=== PATIENT | male | born 1975 | race Caucasian/White ===

== ENCOUNTER 2017-09-03 06:57 | Day surgery (SDC) | payer BC ==
[~2017-09-03 06:57] MED LIST: Lactated Ringers 1,000 ML IV SCH
[2017-09-03] MEDS ORDERED: Midazolam 1 MG/ML 2 ML SDV IV ONE (06:58)
[2017-09-03] MEDS ORDERED: Midazolam 1 MG/ML 2 ML SDV ONE (07:54)
[2017-09-03] MEDS ORDERED: Propofol 200 MG/20 ML SDV ONE (07:55)
[2017-09-03] MEDS ORDERED: fentaNYL 100 MCG/2 ML SDV ONE (07:55)
[2017-09-03] MEDS ORDERED: ceFAZolin 1 GM in Premix Bag 1 BAG IV ONE (08:00)
[2017-09-03 10:17] VITALS: BP 193/99
--- NOTE | 2017-09-03 12:42 | PCM48HPAN ---
Post Anesthesia Note - EVALUATION WITHIN 48HRS OF ANESTHETIC Vital Signs in Normal Range: No (Hypertension) Patient Participated in Evaluation: Yes Respiratory Function Stable: Yes Airway Patent: Yes Cardiovascular Function Stable: Yes Hydration Status Stable: Yes Pain Control Satisfactory: Yes Nausea and Vomiting Control Satisfactory: Yes Mental Status Recovered: Yes - COMMENTS/OBSERVATIONS Free Text/Narrative:: Procedure was cancelled today by Dr. Mehta. Pt was taken to OR 1, transferred himself to OR table. Monitors were applied. BP was elevated at 218 /133. Pt was given versed 2mg IV. Repeat blood pressure was 197/118. Dr. Mehta agreed to have patient wait in same day until we could have internal medicine evaluate and possibly treat blood pressure. During this time, the patient was instructed to take his benicar, which he had not taken yet today. Then his Netta confirmed that patient had not had any of his medications in over a week. At this point, Dr Mehta decided to postpone procedure until patient could be properly worked up by his PCP and begin taking his medications as directed.
== END 2017-09-03 09:40 | disposition home or self-care (01) ==
LOC: DL.SDS 06:57
PROVIDERS: ATTEND Surgery
DX: K80.20 Calculus of gallbladder without cholecystitis without obstruction (principal); Z53.8 Procedure and treatment not carried out for other reasons; I10 Essential (primary) hypertension
CPT/HCPCS: J0690; J2250; J7120

== ENCOUNTER 2017-10-07 07:02 | Day surgery (SDC) | payer BC ==
[~2017-10-07 07:02] MED LIST changes: -Lactated Ringers 1,000 ML IV SCH; +Sodium Chloride 0.9% 10 ML Syringe FLUSH PRN
[2017-10-07] MEDS ORDERED: Neostigmine Methylsulfate 10 MG/10 ML MDV IV ONE (07:03)
[2017-10-07] MEDS ORDERED: Glycopyrrolate 0.2 MG/ML 2 ML SDV IV ONE (07:03)
[2017-10-07] MEDS ORDERED: Midazolam 1 MG/ML 2 ML SDV IV ONE (07:03)
[2017-10-07] MEDS ORDERED: Rocuronium 50 MG/5 ML Vial IV ONE (07:03)
[2017-10-07] MEDS ORDERED: fentaNYL 100 MCG/2 ML SDV IV ONE (07:03)
[2017-10-07] MEDS ORDERED: Ondansetron 4 MG/2 ML SDV IV ONE (07:03)
[2017-10-07] MEDS ORDERED: Propofol 200 MG/20 ML SDV IV ONE (07:03)
[2017-10-07] MEDS ORDERED: Succinylcholine 200 MG/10 ML MDV IV ONE (07:03)
[2017-10-07] MEDS ORDERED: ceFAZolin 1 GM in Sodium Chloride 0.9% 50 ML IV ONE ×2 (07:28→09:36)
[2017-10-07] MEDS: Lactated Ringers 1,000 ML IV SCH ×2 (07:56→12:03)
[2017-10-07] MEDS ORDERED: Ondansetron 4 MG/2 ML SDV IV PRN (09:48)
[2017-10-07] MEDS ORDERED: Sodium Chloride 0.9% 10 ML Syringe FLUSH PRN (09:50)
--- NOTE | 2017-10-07 10:05 | OR ---
DATE: 10/07/2017 PREOPERATIVE DIAGNOSES: Chronic cholecystitis, cholelithiasis. POSTOPERATIVE DIAGNOSES: Chronic cholecystitis, cholelithiasis. PROCEDURE: Laparoscopic cholecystectomy. ANESTHESIA: General. ESTIMATED BLOOD LOSS: Minimal. SPECIMEN: Gallbladder. OPERATIVE FINDINGS: Quite a distended tense gallbladder, otherwise normal. Some sludgy stones were noted within the gallbladder. INDICATION FOR PROCEDURE: This 42-year-old male has known gallstones. Initially, he was scheduled for cholecystectomy last month, however, his blood pressure was not in control. Over the last month, has been controlled well and is normal this morning. DESCRIPTION OF PROCEDURE: After adequate preparation, trocars were placed in the abdomen, and the abdomen was insufflated with CO2. Examination showed a normal abdomen. He had a few omental adhesions to the gallbladder. These were taken off the gallbladder by blunt dissection. The gallbladder was quite tense and difficult to grasp very well, so I made an opening in the gallbladder and suctioned the bile clear so that the gallbladder could be grasped. The cystic triangle structures were dissected free. The artery and cystic duct were triply clipped and divided. The gallbladder was then taken off the liver bed using cautery dissection. After removal from the liver it was placed in a retrieval bag and brought out through the epigastric trocar site. The abdomen was re- insufflated and the right upper quadrant irrigated with saline and suctioned clear. There were no bleeding or any other abnormalities noted. Trocars were removed under direct vision. Abdomen desufflated and the skin closed with Vicryl. [facility] /[id number]
[2017-10-07] MEDS ORDERED: metFORMIN 500 MG Tab PO SCH (14:37)
[2017-10-07] MEDS: Acetaminophen/oxyCODONE 325-5 MG Tab PO PRN ×2 (15:06→20:09)
[2017-10-07] MEDS: Insulin Aspart 100 Units/ML 3 ML Pen SUBCUT SCH ×2 (15:10→17:52)
[2017-10-07] MEDS: metFORMIN 500 MG Tab PO SCH (17:51)
[2017-10-07] MEDS ORDERED: Insulin Detemir 100 Units/ML 3 ML Pen SUBCUT SCH (21:00)
[2017-10-07] MEDS ORDERED: amLODIPine 5 MG Tab PO SCH (21:00)
[2017-10-08] MEDS: Acetaminophen/oxyCODONE 325-5 MG Tab PO PRN (02:23)
[2017-10-08 08:05] VITALS: BP 115/65
[2017-10-08] MEDS: metFORMIN 500 MG Tab PO SCH (09:12)
[2017-10-08] MEDS: Insulin Aspart 100 Units/ML 3 ML Pen SUBCUT SCH (09:12)
--- NOTE | 2017-10-08 09:28 | PCM.SN ---
- Free Text/Narrative Note: Doing well today. Pain controlled. PO adequate. Incisions OK. Instructions given, may discharge today and FU as needed.
[2017-10-08] MEDS ORDERED: metFORMIN 500 MG Tab PO SCH (12:00)
== END 2017-10-08 09:50 | disposition home or self-care (01) ==
LOC: DL.SDS 07:02 → EDSTATUS 08:00 → DL.MS 11:25 → DL.SDS 10-08 09:50
PROVIDERS: ATTEND Surgery
DX: K80.10 Calculus of gallbladder with chronic cholecystitis without obstruction (principal); E78.89 Other lipoprotein metabolism disorders; Z88.0 Allergy status to penicillin; I10 Essential (primary) hypertension; E11.9 Type 2 diabetes mellitus without complications; Z79.4 Long term (current) use of insulin
CPT/HCPCS: 47562; 82962; A9270; J0330; J0690; J1815; J2250; J2405; J2704; J2710; J3010; J7050; J7120; J3490

== ENCOUNTER 2017-12-02 20:28 | Emergency (ER) | payer BC ==
[2017-12-02] MEDS ORDERED: Azithromycin 250 MG Tab PO ONE (21:56)
--- NOTE | 2017-12-02 21:56 | EDM.PDOC ---
ED HPI GENERAL MEDICAL PROBLEM - General Chief Complaint: General Stated Complaint: INFECTION [id number]\\ Time Seen by Provider: 12/02/17 21:20 Source of Information: Reports: Patient History Limitations: Reports: No Limitations - History of Present Illness INITIAL COMMENTS - FREE TEXT/NARRATIVE: sleepy for 2 days with cold symptoms today right side of face painful full of pressure. 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 Right Face Pain Score (Numeric/FACES): 9 - Related Data Allergies Allergy/AdvReac Type Severity Reaction Status Date / Time Penicillins Allergy Rash Verified 12/02/17 21:12 Home Meds: Home Meds Gabapentin [Neurontin] 800 mg PO BID 05/28/14 [History] Insulin Aspart [Novolog Flexpen] 15 unit SQ TID 05/28/14 [History] Insulin Detemir [Levemir Flexpen] 45 unit SQ DAILY 05/28/14 [History] metFORMIN [Glucophage] 1,000 mg PO BID 05/28/14 [History] Aspirin [Halfprin] 81 mg PO BRK 11/03/15 [History] B2/Vit A,C & E/Lut/Zeaxanth/Mn [Icaps] 1 each PO DAILY 11/03/15 [History] Fluticasone Propionate [Flonase Allergy Relief] 50 mcg NS ASDIRECTED PRN [History] Simvastatin [Zocor] 20 mg PO BEDTIME 11/03/15 [History] amLODIPine [Norvasc] 5 mg PO DAILY 11/03/15 [History] Tadalafil [Cialis] 1 tab PO ASDIRECTED 09/02/17 [History] metFORMIN HCl [Metformin HCl] 1 tab PO .NOON 09/02/17 [History] Empagliflozin [Jardiance] 25 mg PO DAILY 09/03/17 [History] Olmesartan Medoxomil 40 mg PO DAILY 09/03/17 [History] Lutein/Minerals/Vit A,C & E [Ocuvite] 1 tab PO DAILY 10/07/17 [History] Past Medical History HEENT History: Reports: Allergic Rhinitis, Impaired Vision, Sinusitis, Other ( See Below) Other HEENT History: DIABETIC RETINOPATHY Cardiovascular History: Reports: High Cholesterol, Hypertension Respiratory History: Reports: None Gastrointestinal History: Reports: Cholelithiasis Genitourinary History: Reports: Renal Calculus, Renal Disease Musculoskeletal History: Reports: None Neurological History: Reports: Neuropathy, Diabetic Psychiatric History: Endocrine/Metabolic History: Reports: Diabetes, Type II Hematologic History: Reports: None Immunologic History: Reports: None Oncologic (Cancer) History: Reports: None Dermatologic History: Reports: Other (See Below) Other Dermatologic History: PT HAS ULCER ON RIGHT FOOT - Infectious Disease History Infectious Disease History: Reports: Chicken Pox - Past Surgical History Other HEENT Surgeries/Procedures: PT STATES HE WILL BE HAVING A EYE SURGERY COMING UP- "REMOVING SCAR TISSUE FROM EYE" Cardiovascular Surgical History: Reports: None Respiratory Surgical History: Reports: None GI Surgical History: Reports: Colonoscopy Male Surgical History: Reports: Kidney Stone Extraction Neurological Surgical History: Reports: None Musculoskeletal Surgical History: Reports: None Oncologic Surgical History: Reports: None Social & Family History - Family History Family Medical History: Noncontributory - Tobacco Use Smoking Status *Q: Never Smoker Second Hand Smoke Exposure: Yes - Caffeine Use Caffeine Use: Reports: Soda Other Caffeine Use: 1 SODA POP BEVERAGE DAILY - Alcohol Use Days Per Week of Alcohol Use: 0 - Recreational Drug Use Recreational Drug Use: No Drug Use in Last 12 Months: No - Living Situation & Occupation Living situation: Reports: , with Spouse Occupation: Employed ED ROS GENERAL - Review of Systems Review Of Systems: See Below Constitutional: Reports: Fever, Malaise, Fatigue HEENT: Reports: Sinus Problem Respiratory: Reports: Cough Cardiovascular: Reports: No Symptoms Endocrine: Reports: No Symptoms GI/Abdominal: Reports: No Symptoms Musculoskeletal: Reports: No Symptoms Skin: Reports: No Symptoms ED EXAM, GENERAL - Physical Exam Exam: See Below Exam Limited By: No Limitations General Appearance: Alert, Anxious, Mild Distress Eye Exam: Bilateral Eye: PERRL Ears: Normal External Exam, Normal TMs Throat/Mouth: Normal Inspection Head: Atraumatic, Normocephalic, Facial Tenderness (right, frontal, ethmoid and maxillary sinus tenderness) Respiratory/Chest: No Respiratory Distress, Lungs Clear, Other (ocassional dry cough) Cardiovascular: Normal Peripheral Pulses, Regular Rate, Rhythm GI/Abdominal: Normal Bowel Sounds Back Exam: Normal Inspection Extremities: Normal Inspection Neurological: Alert, Oriented, Normal Cognition Psychiatric: Normal Affect, Normal Mood Skin Exam: Warm, Dry, Intact, Normal Color, No Rash Course - Vital Signs Last Recorded V/S: Last Vital Signs Temp 98.0 F 12/02/17 21:06 Pulse 101 H 12/02/17 21:06 Resp 18 12/02/17 21:06 BP 174/96 H 12/02/17 22:13 Pulse Ox 99 12/02/17 21:06 - Orders/Labs/Meds Orders: Active Orders 24 hr Category Date Time Status CULTURE STREP A CONFIRMATION [RM] Stat Lab 12/02/17 21:06 Results STREP SCRN A RAPID W CULT CONF [] Stat Lab 12/02/17 21:06 Results Meds: Medications Discontinued Medications Generic Name Dose Route Start Last Admin Trade Name Isiah PRN Reason Stop Dose Admin Azithromycin 500 mg 12/02/17 21:56 12/02/17 22:01 Zithromax PO 12/02/17 21:57 500 mg ONETIME ONE Administration Azithromycin Confirm 12/02/17 22:03 Zithromax Administered 12/02/17 22:04 Dose 1,000 mg .ROUTE .STK-MED ONE Departure - Departure Time of Disposition: 21:53 Disposition: Home, Self-Care 01 Condition: Good Clinical Impression: URI (upper respiratory infection) Qualifiers: URI type: unspecified URI Qualified Code(s): J06.9 - Acute upper respiratory infection, unspecified Sinusitis Qualifiers: Sinusitis location: maxillary Chronicity: acute Recurrence: non-recurrent Qualified Code(s): J01.00 - Acute maxillary sinusitis, unspecified - Discharge Information Instructions: Sinusitis, Adult, [id number] Referrals: PCP,None [Primary Care Provider] - Forms: ED Department Discharge Additional Instructions: muccinex per package instructions humidification tylenol or ibuprofen alternating every 4 hours as needed for discomfort/fever increase fluid intake azithromycin 250mg daily for 5 days - My Orders Last 24 Hours: My Active Orders 12/02/17 21:06 CULTURE STREP A CONFIRMATION [RM] Stat STREP SCRN A RAPID W CULT CONF [RM] Stat - Assessment/Plan Last 24 Hours: My Active Orders 12/02/17 21:06 CULTURE STREP A CONFIRMATION [RM] Stat STREP SCRN A RAPID W CULT CONF [RM] Stat
[2017-12-02] MEDS ORDERED: Azithromycin 250 MG Tab ONE (22:03)
[2017-12-02 22:16] VITALS: BP 174/96
== END 2017-12-02 22:14 | disposition home or self-care (01) ==
LOC: DL.ED 20:28
DX: J01.00 Acute maxillary sinusitis, unspecified (principal); I10 Essential (primary) hypertension; E78.00 Pure hypercholesterolemia, unspecified; E11.40 Type 2 diabetes mellitus with diabetic neuropathy, unspecified; E11.319 Type 2 diabetes mellitus with unspecified diabetic retinopathy without macular edema; Z77.22 Contact with and (suspected) exposure to environmental tobacco smoke (acute) (chronic); Z79.4 Long term (current) use of insulin; Z79.82 Long term (current) use of aspirin; Z79.899 Other long term (current) drug therapy; Z88.0 Allergy status to penicillin
CPT/HCPCS: 87081; 87430; 87804; 99283; A9270

== ENCOUNTER 2018-05-18 10:37 | Day surgery (SDC) | payer BC ==
[2018-05-18] MEDS: Lactated Ringers 1,000 ML IV SCH ×2 (10:25→15:22)
[~2018-05-18 10:37] MED LIST changes: +Bupivacaine 0.5% 30 ML SDV ONE; +Lidocaine 1% 30 ML SDV ONE
[2018-05-18] MEDS ORDERED: Bupivacaine 0.5% 30 ML SDV INJECT ONE ×3 (10:38→11:44)
[2018-05-18] MEDS ORDERED: Propofol 200 MG/20 ML SDV IV ONE (10:38)
[2018-05-18] MEDS ORDERED: fentaNYL 100 MCG/2 ML SDV IV ONE (10:38)
[2018-05-18] MEDS ORDERED: Midazolam 1 MG/ML 2 ML SDV IV ONE (10:38)
[2018-05-18] MEDS ORDERED: Lidocaine 1% 30 ML SDV INJECT ONE ×3 (10:38→11:44)
[2018-05-18] MEDS ORDERED: Ondansetron 4 MG/2 ML SDV IV ONE (10:38)
[2018-05-18] MEDS ORDERED: Gentamicin 40 MG/ML 2 ML Vial ONE (11:44)
--- NOTE | 2018-05-18 13:14 | PCM.OPNOTE ---
- General Post-Op/Procedure Note Date of Surgery/Procedure: 05/18/18 Operative Procedure(s): right foot open debridement and washout with partial 5th metatarsal amputation and 5th digit amputation Pre Op Diagnosis: right foot diabetic ulcer with infection and osteomyelitis Post-Op Diagnosis: harish Anesthesia Technique: Local, MAC Primary Surgeon: Mckenzie Gates [place] Anesthesia Provider: Kendell Mariano Pathology: pre and post irrigation aerobic and anaerobic cultures, 5th digit, 5th metatarsal, proximal margin of 5th metatarsal marked with suture. EBL in mLs: 20 Complications: none Condition: Good Free Text/Narrative:: Pt tolerated procedure well and was transported to recovery with vascular status intact to right foot. Packed open at portion with iodoform packing. Well padded compression dressing applied.
[2018-05-18] MEDS ORDERED: Acetaminophen/oxyCODONE 325-5 MG Tab PO PRN ×2 (14:34→14:45)
[2018-05-18] MEDS: Levofloxacin 500 MG Tab PO SCH (15:19)
[2018-05-18] MEDS: metFORMIN 500 MG Tab PO SCH (19:31)
[2018-05-18] MEDS: Acetaminophen/oxyCODONE 325-5 MG Tab PO PRN (20:03)
[2018-05-18] MEDS: Gabapentin 400 MG Cap PO SCH (20:49)
[2018-05-18] MEDS ORDERED: Simvastatin 10 MG Tab PO SCH (21:00)
[2018-05-18] MEDS ORDERED: amLODIPine 5 MG Tab PO SCH (21:00)
[2018-05-18] MEDS ORDERED: Insulin Detemir 100 Units/ML 3 ML Pen SUBCUT SCH (21:00)
[2018-05-18] MEDS: Insulin Aspart 100 Units/ML 3 ML Pen SUBCUT SCH (21:26)
[2018-05-19] MEDS: Acetaminophen/oxyCODONE 325-5 MG Tab PO PRN ×4 (00:16→14:57)
--- NOTE | 2018-05-19 01:10 | OR ---
DATE: 05/18/2018 PREOPERATIVE DIAGNOSIS: Right foot diabetic ulceration with osteomyelitis and infection. POSTOPERATIVE DIAGNOSIS: Right foot diabetic ulceration with osteomyelitis and infection. PROCEDURE PERFORMED: Right foot 5th digit amputation and partial 5th metatarsal amputation with debridement and washout. ANESTHESIA: Local MAC with preoperative local block of 10 mL, 1:1 mixture of 1% lidocaine plain and 0.5% Marcaine plain. TOURNIQUET TIME: 45 minutes, pneumatic ankle tourniquet, this was let down prior to the end of the surgery to check for good bleeding and healthy tissue. ESTIMATED BLOOD LOSS: 20 mL. SPECIMENS REMOVED: Fifth toe and partial fifth metatarsal, right foot, proximal bone, which was marked with suture, pre and post irrigation, aerobic and anaerobic cultures. COMPLICATIONS: None. INDICATIONS: Dave is a 42-year-old diabetic male who presents for a diabetic foot ulcer on the right foot. This started after he wore a different shoe, which rubbed on the area. He then got the foot wet with dirty water, and it got infected. He has been on IV vancomycin for the past couple of days. We have been irrigating and packing this open before a while now and recently did worsen, it grew out MRSA as well as an anaerobe. He has been wearing the Cam boot at all times. X-rays of the right foot reveals lysis of the bone at the distal 5th metatarsal and also the proximal phalanx of the 5th digit of the right foot, no gas in the soft tissue. The patient voiced good understanding of proposed procedure and possible complications, elects to have surgery at this time. DESCRIPTION OF PROCEDURE: The patient was taken to the operating room, laid in supine position. After adequate anesthesia, induction as described above, the right foot was prepped and draped in the usual sterile fashion. A pneumatic ankle tourniquet was inflated to 225 mmHg, but no exsanguination was used. Attention was directed to the right foot ulcer at the lateral aspect of the 5th metatarsal. An incision was made at the ulcered area, and it was cut out. Sharp and blunt dissections were made down to the level of the bone, and the joint was not intact any longer due to the bone infection, it was noted at this time that the 5th toe was not going to be able to be saved, so I did make a fishmouth incision at the 5th digit, and a 5th digit amputation was performed. The incision at the 5th toe was carried down along the 5th metatarsal. Sharp and blunt dissections were carried down to the level of the metatarsal, and all infected tissues were removed at this time. This was removed sharply and also with a rongeur. The tendons were retracted and pulled as far proximally and cut out. The ends of the tendons appeared healthy. A sagittal saw was used to make a bone cut at the 5th metatarsal at the proximal aspect at good-appearing bone. The bone appeared to be healthy in appearance at this area. This was marked with a suture and the 5th toe along with the 5th metatarsal was sent to the lab, suture was marked at the proximal edge. Pre-irrigation cultures at the bone were taken at this time. The area was then inspected for any remaining necrotic and infected-appearing tissue, and it was all removed. The area was then irrigated with copious amounts of sterile saline mixed with gentamicin. My gloves were changed, and post-irrigation cultures were taken. The area was again irrigated, and the tourniquet was let down. The area was inspected, and all remaining tissue appeared good healthy tissue that was bleeding. The area was then closed with 3-0 nylon, except for the small portion at the lateral aspect which was kept open and packed with iodoform packing. The area was then dressed with Xeroform to the incision site, fluffs, Webril, and an Flavio wrap. The patient tolerated the procedure and anesthesia well, left the operating room for recovery with vital signs stable and vascular status intact to the right foot. He was admitted to the floor, and we will continue IV antibiotics at this time. It was discussed with the hospitalist, and we decided to continue the IV vancomycin b.i.d. and we will also do a p.o. metronidazole for the anaerobic Bacteroides infection. I will see him tomorrow and irrigate and pack at that time. [facility] /[id number]
[2018-05-19] MEDS: Lactated Ringers 1,000 ML IV SCH (03:08)
[2018-05-19 08:20] VITALS: BP 115/72
[2018-05-19] MEDS: metFORMIN 500 MG Tab PO SCH (08:35)
[2018-05-19] MEDS: Gabapentin 400 MG Cap PO SCH (08:35)
[2018-05-19] MEDS: Insulin Aspart 100 Units/ML 3 ML Pen SUBCUT SCH ×2 (08:35→12:17)
[2018-05-19] MEDS ORDERED: Hydrochlorothiazide 25 MG Tab PO SCH (09:15)
[2018-05-19] MEDS ORDERED: Ondansetron 4 MG/2 ML SDV IV ONE (14:36)
[2018-05-19] MEDS: Levofloxacin 500 MG Tab PO SCH (14:58)
--- NOTE | 2018-05-19 16:54 | PCM.CONSN ---
- General Info Date of Service: 05/19/18 Subjective Update: Pt is POD 1 from right foot partial 5th met amputation and 5th toe amputation. Doing well, some nausea today due to some post nasal drip and also he has h/o nausea from pain medications. Some pain to surgical area today. Has kept dressing c,d,i. Is eating well and did sleep good last night. Functional Status: Reports: Pain Controlled, Tolerating Diet, Ambulating - Review of Systems General: Reports: No Symptoms - Patient Data Vitals - Most Recent: Last Vital Signs Temp 36.9 C 05/19/18 08:20 Pulse 91 05/19/18 08:20 Resp 20 05/19/18 08:20 BP 115/72 05/19/18 08:20 Pulse Ox 93 L 05/19/18 08:20 Weight - Most Recent: 92.487 kg I&O - Last 24 Hours: Intake & Output 05/19/18 05/19/18 05/19/18 06:59 14:59 22:59 Intake Total 1279 500 760 Output Total 1350 Balance 1279 -850 760 Lab Results Last 24 Hours: Laboratory Results - last 24 hr 05/18/18 05/18/18 05/18/18 Range/Units 18:47 19:55 21:17 POC Glucose 397 H 356 H (70-105) mg/dl Vancomycin Trough 22.0 H (10-15) ug/ml 05/19/18 05/19/18 05/19/18 Range/Units 07:56 11:04 11:45 POC Glucose 250 H 278 H (70-105) mg/dl Vancomycin Trough 16.0 H (10-15) ug/ml Med Orders - Current: Current Medications Vancomycin HCl (Pharmacy To Dose - Vancomycin) 1 dose .XX ASDIRECTED [facility] Discontinued Medications Amlodipine Besylate (Norvasc) 10 mg PO BEDTIME [facility] Last Admin: 05/18/18 20:50 Dose: 10 mg Bupivacaine HCl (Marcaine 0.5%) Confirm Administered Dose 30 ml .ROUTE .STK-MED ONE Stop: 05/18/18 09:39 Bupivacaine HCl (Marcaine 0.5%) 9 ml INJECT .STK-MED ONE Stop: 05/18/18 11:45 Last Admin: 05/18/18 11:44 Dose: 9 ml Bupivacaine HCl (Marcaine 0.5%) 30 ml INJECT .STK-MED ONE Stop: 05/18/18 10:39 Fentanyl (Sublimaze) 100 mcg IV .STK-MED ONE Stop: 05/18/18 10:39 Gabapentin (Neurontin) 800 mg PO BID [facility] Last Admin: 05/19/18 08:35 Dose: 800 mg Gentamicin Sulfate (Gentamicin) 80 mg .XX .STK-MED ONE Stop: 05/18/18 11:45 Last Admin: 05/18/18 11:44 Dose: 80 mg Hydrochlorothiazide (Hydrochlorothiazide) 25 mg PO DAILY [facility] Last Admin: 05/19/18 10:00 Dose: 25 mg Lactated Ringer's (Ringers, Lactated) 1,000 mls @ 100 mls/hr IV ASDIRECTED [facility] Last Admin: 05/19/18 03:08 Dose: 100 mls/hr Vancomycin HCl 1 gm/ Sodium (Chloride) 250 mls @ 167 mls/hr IV ONETIME ONE Stop: 05/18/18 10:53 Last Admin: 05/18/18 11:22 Dose: 167 mls/hr Vancomycin HCl 1 gm/ Sodium (Chloride) 250 mls @ 167 mls/hr IV Q12H [facility] Last Admin: 05/19/18 12:33 Dose: 167 mls/hr Insulin Aspart (Novolog) 0 unit SUBCUT QIDACANDBED [facility]; Protocol Last Admin: 05/19/18 12:17 Dose: 3 units Insulin Detemir (Levemir) 40 unit SUBCUT BEDTIME [facility] Last Admin: 05/18/18 21:27 Dose: 40 units Levofloxacin (Levaquin) 500 mg PO Q24H [facility] Last Admin: 05/19/18 14:58 Dose: 500 mg Lidocaine HCl (Xylocaine-Mpf 1%) Confirm Administered Dose 30 ml .ROUTE .STK- MED ONE Stop: 05/18/18 09:39 Lidocaine HCl (Xylocaine-Mpf 1%) 9 ml INJECT .STK-MED ONE Stop: 05/18/18 11:45 Last Admin: 05/18/18 11:44 Dose: 9 ml Lidocaine HCl (Xylocaine-Mpf 1%) 30 ml INJECT .STK-MED ONE Stop: 05/18/18 10:39 Metformin HCl (Glucophage) 1,000 mg PO BIDMEALS [facility] Last Admin: 05/19/18 08:35 Dose: 1,000 mg Midazolam HCl (Versed 1 Mg/Ml) 2 mg IV .STK-MED ONE Stop: 05/18/18 10:39 Ondansetron HCl (Zofran) 4 mg IV .STK-MED ONE Stop: 05/18/18 10:39 Ondansetron HCl (Zofran) 4 mg IV ONETIME ONE Stop: 05/19/18 14:37 Last Admin: 05/19/18 15:00 Dose: 4 mg Oxycodone/Acetaminophen (Percocet 325-5 Mg) 1 tab PO ONETIME PRN PRN Reason: Breakthrough Pain Oxycodone/Acetaminophen (Percocet 325-5 Mg) 1 tab PO Q4H PRN PRN Reason: Breakthrough Pain Last Admin: 05/18/18 15:19 Dose: 1 tab Oxycodone/Acetaminophen (Percocet 325-5 Mg) 1 tab PO Q4H PRN PRN Reason: Pain Last Admin: 05/19/18 14:57 Dose: 1 tab Propofol (Diprivan 20 Ml) 530 mg IV .STK-MED ONE Stop: 05/18/18 10:39 Simvastatin (Zocor) 20 mg PO BEDTIME [facility] Last Admin: 05/18/18 20:50 Dose: 20 mg Sodium Chloride (Saline Flush) 10 ml FLUSH ASDIRECTED PRN PRN Reason: Keep Vein Open Last Admin: 05/18/18 15:25 Dose: 10 ml - Exam General: Alert, Oriented, No Acute Distress Physical Findings Comments:: Right LE: Sutures intact to incision site right lateral foot with no drainage today, just some mild bloody drainage, not able to express any purulence and erythema is completely resolved. Good pulses and foot warm to touch. No pain extending proximally up foot or leg, no calf pain. Consult PN Assessment/Plan POD#: 1 Procedures: Procedures ASSAY OF CK (CPK) (11/24/14) ASSAY OF NATRIURETIC PEPTIDE (11/24/14) ASSAY OF TROPONIN QUANT (11/24/14) BLOOD CULTURE FOR BACTERIA (11/03/15) CHEST X-RAY 1 VIEW FRONTAL (11/24/14) CHEST X-RAY 2VW FRONTAL&LATL (07/14/17) COMPLETE CBC W/AUTO DIFF WBC (11/03/15) COMPREHEN METABOLIC PANEL (11/24/14) CREATINE MB FRACTION (11/24/14) CULTURE SCREEN ONLY (12/02/17) ECHO EXAM OF ABDOMEN (07/14/17) ELECTROCARDIOGRAM TRACING (11/24/14) EMERGENCY DEPT VISIT (12/02/17) EMERGENCY DEPT VISIT (11/24/14) EMERGENCY DEPT VISIT (05/30/14) EMERGENCY DEPT VISIT (05/28/14) FIBRIN DEGRADATION QUANT (11/03/15) GLUCOSE BLOOD TEST (10/07/17) INFLUENZA ASSAY W/OPTIC (12/02/17) LAPAROSCOPIC CHOLECYSTECTOMY (10/07/17) METABOLIC PANEL TOTAL CA (11/03/15) PROTHROMBIN TIME (11/24/14) REAGENT STRIP/BLOOD GLUCOSE (11/24/14) ROUTINE VENIPUNCTURE (11/03/15) STREP A AG IA (12/02/17) THER/PROPH/DIAG INJ SC/IM (11/07/15) THER/PROPH/DIAG IV INF INIT (05/30/14) THROMBOPLASTIN TIME PARTIAL (11/24/14) TX/PRO/DX INJ NEW DRUG ADDON (05/30/14) URINALYSIS AUTO W/SCOPE (05/30/14) X-RAY EXAM RIBS UNI 2 VIEWS (03/18/16) (1) Osteomyelitis SNOMED Code(s): 95582983 Code(s): M86.9 - OSTEOMYELITIS, UNSPECIFIED Problem List Initiated/Reviewed/Updated: Yes My Orders Last 24 Hours: My Active Orders 05/18/18 16:17 Wound Care [RC] 08,20 05/18/18 18:56 Blood Glucose Check, Bedside [RC] QIDACANDBED 05/19/18 14:30 Ready for Discharge [RC] PER UNIT ROUTINE Plan: Today I irrigated surgical area with 500 ml NS, no purulence today and resolved erythema. I did pack with iodofrom packing and dressed with gauze, webroll and coban. Vanc troph last night 22, waited on dose this morning and re-ran trough which was then at 16. Will do the IV dose today then he can be d/demetris to home. Will plan on having him do IV vanc tomorrow AM and see how the foot looks then. Also PO metronidazole QID at home. I will see him tomorrow AM also for irrigationa nd dressing change, if looks good may also close at that time.
== END 2018-05-19 16:20 | disposition home or self-care (01) ==
LOC: DL.SDS 10:37 → DL.MS 15:41 → DL.SDS 05-19 16:20
PROVIDERS: ATTEND Podiatrist
PROC: 0Y6M0Z8 Detachment at Right Foot, Complete 5th Ray, Open Approach (ICD-10-PCS; principal; 2018-05-18)
DX: E11.621 Type 2 diabetes mellitus with foot ulcer (principal); L97.519 Non-pressure chronic ulcer of other part of right foot with unspecified severity; E11.69 Type 2 diabetes mellitus with other specified complication; E11.40 Type 2 diabetes mellitus with diabetic neuropathy, unspecified; M86.9 Osteomyelitis, unspecified; Z79.4 Long term (current) use of insulin; Z86.718 Personal history of other venous thrombosis and embolism; I10 Essential (primary) hypertension; E78.5 Hyperlipidemia, unspecified; Z88.0 Allergy status to penicillin; Z79.899 Other long term (current) drug therapy
CPT/HCPCS: 28810; 36415; 80202; 82962; 87070; 87075; A9270; J1580; J1815; J2250; J2405; J2704; J3010; J3370; J7050; J7120

== ENCOUNTER → 2018-06-10 | Day surgery (SDC) | payer BC ==
[~2018-06-10] MED LIST changes: +Acetaminophen 325 MG Tab PO PRN; +Apraclonidine 0.5% Ophth Soln 5 ML Bot EYELF ONE; +Balanced Salt Solution Plus Ophth Irrig 500 ML Bottle IOCULAR ONE; -Bupivacaine 0.5% 30 ML SDV ONE; +Cataract Ophth Solution EYELF ONE; +Chondroitin Sulfate/Hyaluronate Sodium Ophth Inj 0.75 ML Syringe EYELF ONE; +Dexamethasone/Neomycin/Polymyxin B Ophth Oint 3.5 GM Tube EYELF ONE; +Lidocaine 1% 30 ML SDV INJECT ONE; -Lidocaine 1% 30 ML SDV ONE; +Midazolam 1 MG/ML 2 ML SDV IV ONE; +Moxifloxacin 0.5% Ophth Soln 3 ML Bottle EYELF ONE; +Ondansetron 4 MG/2 ML SDV IVPUSH PRN; +Phenylephrine 10% Ophth Soln 5 ML Bot EYELF ONE; +Phenylephrine 10% Ophth Soln 5 ML Bot EYELF PRN; +Povidone-Iodine 5% Sterile Ophth Soln 30 ML Bottle EYELF ONE; +Proparacaine 0.5% Ophth Soln 15 ML Bottle EYELF ONE; +Sodium Chloride 0.9% 10 ML Syringe IV ONE; +Tetracaine HCl/PF 0.5% 4 ML Bottle EYELF ONE; +Timolol Maleate 0.5% Ophth Soln 5 ML Bottle EYELF ONE; +Vancomycin 500 MG SDV EYELF ONE
--- NOTE | 2018-06-10 10:04 | OR ---
DATE: 06/10/2018 This is a complex cataract, left eye, with small pupil and Malyugin ring. PREOPERATIVE DIAGNOSIS: Visually significant mixed cataract, left eye. POSTOPERATIVE DIAGNOSIS: Visually significant mixed cataract, left eye. PROCEDURE: Extracapsular cataract extraction with intraocular lens implant, left eye. ANESTHESIA: Topical/local MAC. COMPLICATIONS: None. INDICATION: Mr. Granger was seen in the clinic. He has complained of a progressive decrease in vision. His clinical examination reveals best spectacle corrected vision at the level of 20/200. Examination reveals mixed nuclear and cortical cataract. I explained options; I offered cataract surgery; and I explained risks including the potential for infection, retinal detachment, and loss of vision amongst others. He also has a history of proliferative diabetic retinopathy, and I explained that his ultimate visual potential would likely be limited by retinal health. We discussed implant options, and I recommended a monofocal implant. OPERATIVE DESCRIPTION: After informed consent was obtained and the risks, benefits, and alternatives were explained, the patient was brought to the operative suite and topical anesthesia was administered. The patient was then prepped and draped in the sterile fashion, and attention was placed on the left eye. A sterile lid speculum was placed into the left eye to allow operative exposure. A full-thickness paracentesis was made in the temporal portion of the operative eye. Preservative-free lidocaine 0.1 mL was injected into the anterior chamber followed by viscoelastic. A full-thickness corneal incision was then made into the anterior chamber. A bent needle cystotome was used to create a small mimi in the anterior capsule. The capsulorrhexis forceps was then used to create a 360-degree curvilinear capsulorrhexis. The nucleus was then removed using a phacoemulsification handpiece, and the remaining cortical material was then removed with irrigation and aspiration handpiece. Following removal of the cortical material, the capsular bag was then inspected and noted to be free of any holes or tears. Viscoelastic was then injected into the capsular bag, and the intraocular lens was inserted into the capsular bag. The viscoelastic material was then removed from both the anterior and posterior chambers and from behind the IOL. The lens and capsular bag were then reinspected. The IOL was well centered and the capsular bag intact. The wound and paracentesis sites were inspected and hydrated with balanced saline solution. Both were found to be self-sealing. The intraocular pressure was assessed digitally and found to be within normal range. A good red reflex was noted at the completion of the procedure. No complications occurred during the operation. At the completion of the procedure, Maxitrol, Voltaren, and Iopidine drops were placed into the operative eye. A sterile eye shield was placed over the operative eye, and the patient was transported to the postoperative recovery area having tolerated the procedure well. Postoperative instructions were given along with a postoperative appointment. The patient was advised to call with any questions or concerns. [facility] /[id number]
[2018-06-10 13:19] VITALS: BP 144/87
== END | disposition home or self-care (01) ==
LOC: DL.SDS 07:22
PROVIDERS: ATTEND Ophthalmology
DX: E11.36 Type 2 diabetes mellitus with diabetic cataract (principal); H25.812 Combined forms of age-related cataract, left eye; E11.3599 Type 2 diabetes mellitus with proliferative diabetic retinopathy without macular edema, unspecified eye; E11.621 Type 2 diabetes mellitus with foot ulcer; L97.509 Non-pressure chronic ulcer of other part of unspecified foot with unspecified severity; E11.40 Type 2 diabetes mellitus with diabetic neuropathy, unspecified; I10 Essential (primary) hypertension; E78.2 Mixed hyperlipidemia; Z79.4 Long term (current) use of insulin; Z79.899 Other long term (current) drug therapy; Z88.0 Allergy status to penicillin
CPT/HCPCS: 66984; 82962; A9270; J2250; J3370; J7050

== ENCOUNTER 2018-12-28 08:35 | Emergency (ER) | payer BC ==
[2018-12-28 08:49] VITALS: BP 162/90
[2018-12-28] MEDS ORDERED: Sodium Chloride 0.9% 10 ML Syringe FLUSH PRN (08:54)
[2018-12-28] MEDS ORDERED: Sodium Chloride 0.9% 1,000 ML IV ONE (08:56)
[2018-12-28] MEDS ORDERED: Ondansetron 4 MG/2 ML SDV IV ONE (08:56)
--- NOTE | 2018-12-28 09:05 | EDM.PDOC ---
"<Moose Ray - Last Filed: 12/28/18 09:29> ED HPI GENERAL MEDICAL PROBLEM - General Chief Complaint: Gastrointestinal Problem Stated Complaint: SICK [id number] Time Seen by Provider: 12/28/18 09:00 Source of Information: Reports: Patient History Limitations: Reports: No Limitations - History of Present Illness INITIAL COMMENTS - FREE TEXT/NARRATIVE: Dave presented in the ED today for nausea and chills starting this morning. He also found a lump on his right leg this morning. He has never felt the lump there before. Denies fever. Has no redness or warmth in his leg. He does have an ulcer on his right foot. The ulcer has been there for a couple months now. He sees a information assistant once a month. No stomach pain, just some nausea. He has not thrown up at all. He has a cough, but he has had that for 20 years. Onset: Today, Sudden Onset Date: 12/28/18 Duration: Hour(s): Location: Reports: Abdomen, Lower Extremity, Right, Generalized (chills) Quality: Reports: Other (nausea) Severity: Mild Improves with: Reports: None Worsens with: Reports: None Associated Symptoms: Reports: Cough (for 20 years), Fever/Chills (does not know about fever, but has had chills), Nausea/Vomiting (no vomiting). Denies: Chest Pain, Headaches, Rash - Related Data Allergies Allergy/AdvReac Type Severity Reaction Status Date / Time Penicillins Allergy Rash Verified 12/28/18 09:04 Home Meds: Home Meds Gabapentin [Neurontin] 800 mg PO BID 05/28/14 [History] Insulin Aspart [Novolog Flexpen] 10 - 15 unit SQ TID 05/28/14 [History] Insulin Detemir [Levemir Flexpen] 45 unit SQ BEDTIME 05/28/14 [History] metFORMIN [Glucophage] 1,000 mg PO BIDMEALS 05/28/14 [History] Aspirin [Halfprin] 81 mg PO DAILY 11/03/15 [History] B2/Vit A,C & E/Lut/Zeaxanth/Mn [Icaps] 1 each PO DAILY 11/03/15 [History] Simvastatin [Zocor] 20 mg PO BEDTIME 11/03/15 [History] metFORMIN HCl [Metformin HCl] 500 mg PO WITHLUNCH 09/02/17 [History] Empagliflozin [Jardiance] 25 mg PO DAILY 09/03/17 [History] amLODIPine Besylate [Norvasc] 10 mg PO BEDTIME 05/14/18 [History] hydroCHLOROthiazide [Hydrochlorothiazide] 25 mg PO DAILY 05/14/18 [History] Past Medical History HEENT History: Reports: Allergic Rhinitis, Cataract, Impaired Vision, Sinusitis , Other (See Below) Other HEENT History: DIABETIC RETINOPATHY Cardiovascular History: Reports: High Cholesterol, Hypertension Respiratory History: Reports: None Gastrointestinal History: Reports: Cholelithiasis Genitourinary History: Reports: Renal Calculus, Renal Disease Musculoskeletal History: Reports: None Neurological History: Reports: Neuropathy, Diabetic Psychiatric History: Reports: None Endocrine/Metabolic History: Reports: Diabetes, Type II Hematologic History: Reports: Anemia Immunologic History: Reports: None Oncologic (Cancer) History: Reports: None Dermatologic History: Reports: Other (See Below) Other Dermatologic History: hx of ULCER ON RIGHT FOOT - Infectious Disease History Infectious Disease History: Reports: Chicken Pox, MRSA - Past Surgical History Head Surgeries/Procedures: Reports: None HEENT Surgical History: Reports: Cataract Surgery, Laser Surgery Other HEENT Surgeries/Procedures: left eye. CATARACT PROCEDURE LEFT EYE WITH LENS IMPLANT Cardiovascular Surgical History: Reports: None Respiratory Surgical History: Reports: None GI Surgical History: Reports: Cholecystectomy, Colonoscopy, EGD Male Surgical History: Reports: Kidney Stone Extraction Endocrine Surgical History: Reports: None Neurological Surgical History: Reports: None Musculoskeletal Surgical History: Reports: None, Other (See Below) Other Musculoskeletal Surgeries/Procedures:: had diabetic sore on bottom of right foot which is healed now Oncologic Surgical History: Reports: None Dermatological Surgical History: Reports: None Social & Family History - Family History Family Medical History: Noncontributory - Tobacco Use Smoking Status *Q: Never Smoker - Caffeine Use Caffeine Use: Reports: Soda Other Caffeine Use: 1 SODA POP BEVERAGE DAILY - Recreational Drug Use Recreational Drug Use: No - Living Situation & Occupation Living situation: Reports: , with Spouse Occupation: Employed ED ROS GENERAL - Review of Systems Review Of Systems: See Below Constitutional: Reports: Chills. Denies: Fever HEENT: Reports: No Symptoms Respiratory: Reports: Cough (20 years) GI/Abdominal: Reports: Nausea. Denies: Abdominal Pain, Diarrhea, Vomiting : Reports: No Symptoms Musculoskeletal: Denies: Joint Pain, Joint Swelling Skin: Reports: Lumps. Denies: Rash, Erythema ED EXAM, GI/ABD - Physical Exam Exam: See Below Exam Limited By: No Limitations General Appearance: Alert, WD/WN, No Apparent Distress Nose: Normal Inspection Throat/Mouth: Normal Inspection, Normal Lips Neck: No: Lymphadenopathy (L), Lymphadenopathy (R) Respiratory/Chest: No Respiratory Distress, Lungs Clear, Normal Breath Sounds, No Accessory Muscle Use, Chest Non-Tender Cardiovascular: Regular Rate, Rhythm, No Murmur GI/Abdominal Exam: Normal Bowel Sounds, Soft, Non-Tender, No Organomegaly, No Distention, No Mass (Male) Exam: Inguinal Lymphadenopathy (one enlarged, tender lymphnode in the right inguinal area. No redness or warmth in the area. 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 Ulcer on the bottom of his right foot. Ulcer is not draining, no old dried blood. ). No: Increased Warmth Neurological: Alert, Oriented Psychiatric: Normal Affect, Normal Mood Skin Exam: Warm, Dry Lymphatic: Adenopathy (right inguinal) Course - Vital Signs Last Recorded V/S: Last Vital Signs Temp 35.9 C 12/28/18 08:45 Pulse 105 H 12/28/18 08:45 Resp 16 12/28/18 08:45 BP 162/90 H 12/28/18 08:45 Pulse Ox 100 12/28/18 08:45 - Orders/Labs/Meds Orders: Active Orders 24 hr Category Date Time Status Peripheral IV Care [RC] . DIRECTED Care 12/28/18 08:55 Active Chest 2V [CR] Urgent Exams 12/28/18 09:17 Taken Foot Comp Min 3V Rt [CR] Urgent Exams 12/28/18 09:17 Taken CULTURE BLOOD [BC] Stat Lab 12/28/18 09:00 Received CULTURE BLOOD [BC] Stat Lab 12/28/18 09:10 Received Levofloxacin/Dextrose 5%-Water [Levaquin in D5W 750 MG/ Med 12/28/18 10:06 Active 150 ML] 750 mg Premix Bag 1 bag IV ONETIME Sodium Chloride 0.9% [Saline Flush] Med 12/28/18 08:54 Active 10 ml FLUSH ASDIRECTED PRN Blood Culture x2 Reflex Set [OM.PC] Stat Oth 12/28/18 08:55 Ordered Peripheral IV Insertion Adult [OM.PC] Stat Oth 12/28/18 08:55 Ordered Medication Orders Levofloxacin/Dextrose 750 mg/ (Premix) 150 mls @ 100 mls/hr IV ONETIME ONE Stop: 12/28/18 11:35 Sodium Chloride (Saline Flush) 10 ml FLUSH ASDIRECTED PRN PRN Reason: Keep Vein Open Last Admin: 12/28/18 09:04 Dose: 10 ml Labs: Laboratory Tests 12/28/18 12/28/18 12/28/18 Range/Units 08:55 09:00 09:00 WBC 16.5 H (5.0-10.0) 10^3/uL RBC 5.27 (4.6-6.2) 10^6/uL Hgb 14.8 (14.0-18.0) g/dL Hct 42.6 (40.0-54.0) % MCV 80.8 D (80-100) fL MCH 28.1 (27.0-34.0) pg MCHC 34.7 (33.0-35.0) g/dL Plt Count 201 (150-450) 10^3/uL Neut % (Auto) 83.0 H (42.2-75.2) % Lymph % (Auto) 8.3 L (20.5-50.1) % [place] % (Auto) 7.6 (2-8) % Eos % (Auto) 0.9 L (1.0-3.0) % Baso % (Auto) 0.2 (0.0-1.0) % Sodium 134 L (135-145) mmol/L Potassium 4.2 (3.6-5.0) mmol/L Chloride 100 L (101-111) mmol/L Carbon Dioxide 23.0 (21.0-31.0) mmol/L Anion Gap 15.2 BUN 28 H (7-18) mg/dL Creatinine 1.2 (0.6-1.3) mg/dL Est Cr Clr Drug Dosing TNP Estimated GFR (MDRD) > 60 BUN/Creatinine Ratio 23.33 Glucose 241 H (74-105) mg/dL Lactic Acid (0.5-2.2) mmol/L Calcium 9.1 (8.4-10.2) mg/dl Total Bilirubin 0.6 (0.2-1.0) mg/dL AST 32 (10-42) IU/L ALT 36 (10-60) IU/L Alkaline Phosphatase 81 (42-121) IU/L Total Protein 7.9 (6.7-8.2) g/dl Albumin 4.1 (3.2-5.5) g/dl Globulin 3.8 Albumin/Globulin Ratio 1.08 Amylase 39 (28-100) U/L Lipase 33 (22-51) U/L Urine Color Yellow (YELLOW) Urine Appearance Clear (CLEAR) Urine pH 5.5 (5.0-9.0) Ur Specific [place] 1.015 (1.005-1.030) Urine Protein 30 H (NEGATIVE) Urine Glucose (UA) 500 H (NEGATIVE) Urine Ketones Negative (NEGATIVE) Urine Occult Blood Trace-intact H (NEGATIVE) Urine Nitrite Negative (NEGATIVE) Urine Bilirubin Negative (NEGATIVE) Urine Urobilinogen 0.2 (0.2-1.0) mg/dL Ur Leukocyte Esterase Negative (NEGATIVE) Urine RBC 0-5 /HPF Urine WBC Not seen (0-5/HPF) /HPF Ur Epithelial Cells Rare /HPF Urine Bacteria Not seen (0-FEW/HPF) /HPF Urine Mucus Not seen /LPF Ketones Negative 12/28/18 Range/Units 09:00 WBC (5.0-10.0) 10^3/uL RBC (4.6-6.2) 10^6/uL Hgb (14.0-18.0) g/dL Hct (40.0-54.0) % MCV (80-100) fL MCH (27.0-34.0) pg MCHC (33.0-35.0) g/dL Plt Count (150-450) 10^3/uL Neut % (Auto) (42.2-75.2) % Lymph % (Auto) (20.5-50.1) % [place] % (Auto) (2-8) % Eos % (Auto) (1.0-3.0) % Baso % (Auto) (0.0-1.0) % Sodium (135-145) mmol/L Potassium (3.6-5.0) mmol/L Chloride (101-111) mmol/L Carbon Dioxide (21.0-31.0) mmol/L Anion Gap BUN (7-18) mg/dL Creatinine (0.6-1.3) mg/dL Est Cr Clr Drug Dosing Estimated GFR (MDRD) BUN/Creatinine Ratio Glucose (74-105) mg/dL Lactic Acid 1.3 (0.5-2.2) mmol/L Calcium (8.4-10.2) mg/dl Total Bilirubin (0.2-1.0) mg/dL AST (10-42) IU/L ALT (10-60) IU/L Alkaline Phosphatase (42-121) IU/L Total Protein (6.7-8.2) g/dl Albumin (3.2-5.5) g/dl Globulin Albumin/Globulin Ratio Amylase (28-100) U/L Lipase (22-51) U/L Urine Color (YELLOW) Urine Appearance (CLEAR) Urine pH (5.0-9.0) Ur Specific [place] (1.005-1.030) Urine Protein (NEGATIVE) Urine Glucose (UA) (NEGATIVE) Urine Ketones (NEGATIVE) Urine Occult Blood (NEGATIVE) Urine Nitrite (NEGATIVE) Urine Bilirubin (NEGATIVE) Urine Urobilinogen (0.2-1.0) mg/dL Ur Leukocyte Esterase (NEGATIVE) Urine RBC /HPF Urine WBC (0-5/HPF) /HPF Ur Epithelial Cells /HPF Urine Bacteria (0-FEW/HPF) /HPF Urine Mucus /LPF Ketones Influenza A/B swab was negative. Meds: Medications Generic Name Dose Route Start Last Admin Trade Name Freq PRN Reason Stop Dose Admin Levofloxacin/Dextrose 750 mg/ 150 mls @ 100 mls/hr 12/28/18 10:06 Premix IV 12/28/18 11:35 ONETIME ONE Sodium Chloride 10 ml 12/28/18 08:54 12/28/18 09:04 Saline Flush FLUSH 10 ml ASDIRECTED PRN Administration Keep Vein Open Discontinued Medications Generic Name Dose Route Start Last Admin Trade Name Freq PRN Reason Stop Dose Admin Sodium Chloride 1,000 mls @ 999 mls/hr 12/28/18 08:56 12/28/18 09:04 Normal Saline IV 12/28/18 09:56 999 mls/hr .BOLUS ONE Administration Ondansetron HCl 4 mg 12/28/18 08:56 12/28/18 09:04 Zofran IV 12/28/18 08:57 4 mg ONETIME ONE Administration Trimethoprim/Sulfamethoxazole 1 tab 12/28/18 10:07 Septra Ds PO 12/28/18 10:08 ONETIME ONE Departure - Departure Disposition: Home, Self-Care 01 Clinical Impression: Inguinal lymphadenopathy, History of MRSA infection Pneumonia Qualifiers: Pneumonia type: due to unspecified organism Laterality: left Lung location: unspecified part of lung Qualified Code(s): J18.9 - Pneumonia, unspecified organism Chronic ulcer of right foot Qualifiers: Non-pressure ulcer stage: unspecified non-pressure ulcer stage Qualified Code(s ): L97.519 - Non-pressure chronic ulcer of other part of right foot with unspecified severity - Discharge Information Instructions: Community-Acquired Pneumonia, Adult, [id number], Lymphadenopathy Forms: ED Department Discharge Additional Instructions: Rx: Levaquin 750mg Rx: Bactrim DS Rx: Zofran 4mg Follow up in clinic with your doctor in the next 5 to 7 days for recheck. Follow up in podiatry clinic with Dr. Mariano Monterroso for recheck of right foot ulcer. Return to ER if worse at any time. - Problem List Review Problem List Initiated/Reviewed/Updated: Yes - My Orders Last 24 Hours: My Active Orders 12/28/18 08:54 Sodium Chloride 0.9% [Saline Flush] 10 ml FLUSH ASDIRECTED PRN 12/28/18 08:55 Peripheral IV Care [RC] . DIRECTED Blood Culture x2 Reflex Set [OM.PC] Stat Peripheral IV Insertion Adult [OM.PC] Stat 12/28/18 09:00 CULTURE BLOOD [BC] Stat 12/28/18 09:10 CULTURE BLOOD [BC] Stat 12/28/18 09:17 Chest 2V [CR] Urgent Foot Comp Min 3V Rt [CR] Urgent 12/28/18 10:06 Levofloxacin/Dextrose 5%-Water [Levaquin in D5W 750 MG/150 ML] 750 mg Premix Bag 1 bag IV ONETIME - Assessment/Plan Last 24 Hours: My Active Orders 12/28/18 08:54 Sodium Chloride 0.9% [Saline Flush] 10 ml FLUSH ASDIRECTED PRN 12/28/18 08:55 Peripheral IV Care [RC] . DIRECTED Blood Culture x2 Reflex Set [OM.PC] Stat Peripheral IV Insertion Adult [OM.PC] Stat 12/28/18 09:00 CULTURE BLOOD [BC] Stat 12/28/18 09:10 CULTURE BLOOD [BC] Stat 12/28/18 09:17 Chest 2V [CR] Urgent Foot Comp Min 3V Rt [CR] Urgent 12/28/18 10:06 Levofloxacin/Dextrose 5%-Water [Levaquin in D5W 750 MG/150 ML] 750 mg Premix Bag 1 bag IV ONETIME Assessment:: Dave is a 43 y/o male with a history of high cholesterol, hypertension, diabetes , diabetic neuropathy with ulcer and renal disease presenting for nausea, chills and a lump in his inguinal area. Labs showed high WBC. Possible infection from his ulcer. Plan: 1. CBC - high WBC's 2. X-ray of chest and right foot 3. Influenza A/B swab negative <Jeannine Mera - Last Filed: 12/28/18 10:31> Course - Radiology Interpretation Free Text/Narrative:: [facility] Final Radiology Report Call: [phone] assistance Online chat: [email or web address] Scientific Name: DAVE MORATAYA Age: 43Years M Date: 12/28/2018 SSN: -- : [id number] Study: XR CHEST 2 VIEWS Requesting Physician: JEANNINE MERA Images: 2 Addl Studies: Provided Clinical History: Contrast: Contrast Medium: Contrast Amount: Contrast Method: CONFIDENTIALITY STATEMENT This report is intended only for use by the referring physician, and only in accordance with law. If you received this in error, call [phone]. Page 1 of 1 EXAM: XR Chest, 2 Views EXAM DATE/TIME: 12/28/2018 9:21 AM CLINICAL HISTORY: 43 years old, male; Signs and symptoms; Other: Cough TECHNIQUE: XR of the chest, 2 views. COMPARISON: CR Chest 2V 12/16/2018 2:36 PM FINDINGS: Lungs: There is mildly increased lingular atelectasis or possibly infiltrate. Mild atelectasis is again present at the right base. The lungs are otherwise clear. Pleural space: Unremarkable. No pleural effusion. No pneumothorax. Heart/Mediastinum: The cardiomediastinal silhouette is fairly stable in appearance. Bones/joints: Degenerative changes again involve the spine. IMPRESSION: Mildly increased lingular atelectasis or possibly infiltrate as compared with . Thank you for allowing us to participate in the care of your patient. Dictated and Authenticated by: Rigoberto Gunn MD 12/28/2018 9:57 AM Central Time ([place] & [place]) [facility] Final Radiology Report Call: [phone] assistance Online chat: [email or web address] Scientific Name: DAVE MORATAYA Age: 43Years M Date: 12/28/2018 SSN: -- : [id number] Study: XR FOOT COMPLETE MIN 3 VIEWS Requesting Physician: JEANNINE MERA Images: 3 Addl Studies: Provided Clinical History: Contrast: Contrast Medium: Contrast Amount: Contrast Method: Page 1 of 2 EXAM: XR Right Foot Complete, 3 or more Views EXAM DATE/TIME: 12/28/2018 9:26 AM CLINICAL HISTORY: 43 years old, male; Signs and symptoms; Other: Infected plantar ulcer 2nd/3rd mt heads TECHNIQUE: XR Right foot 3 or more views. COMPARISON: No relevant prior studies available. FINDINGS: Bones/joints: The fifth toe and majority of the fifth metatarsal have been amputated. There is heterotopic ossification at the level of the residual fifth metatarsal base. No acute fracture or dislocation is identified. There is no osseous erosion or cortical destruction. There are small posterior and small to moderate plantar calcaneal osteophytes. Very mild osteophyte formation is present about some intertarsal joints and the first metatarsophalangeal joint. The first interphalangeal joint is narrowed and with some productive changes. The second proximal interphalangeal joint is partially fused. Soft tissues: The plantar soft tissues appear swollen. IMPRESSION: 1. Plantar soft tissue swelling without radiographic evidence for osteomyelitis. MRI or three-phase bone scan would be more sensitive in this regard as clinically appropriate. 2. Postoperative changes as described. 3. Degenerative changes as described. DAVE MORATAYA | Final Radiology Report CONFIDENTIALITY STATEMENT This report is intended only for use by the referring physician, and only in accordance with law. If you received this in error, call [phone]. Page 2 of 2 Thank you for allowing us to participate in the care of your patient. Dictated and Authenticated by: Rigoberto Gunn MD 12/28/2018 10:08 AM Central Time ([place] & [place]) - Re-Assessments/Exams Free Text/Narrative Re-Assessment/Exam: 12/28/18 10:29 I obtained HPI/Hx, examined the pt and agree with the documentation, and directly oversaw all care provided by Moose ARCHIBALD for this encounter. Departure - Departure Time of Disposition: 11:00 Condition: Fair - Discharge Information *PRESCRIPTION DRUG MONITORING PROGRAM REVIEWED*: No *COPY OF PRESCRIPTION DRUG MONITORING REPORT IN PATIENT JACQUIE: No"
[2018-12-28 09:28] LABS: ANION GAP 15.2; CHLORIDE,CL 100 mmol/L (101-111); SODIUM,NA 134 mmol/L (135-145)
[2018-12-28] MEDS ORDERED: Levofloxacin/Dextrose 5%-Water 750 MG in Premix Bag 1 BAG IV ONE (10:06)
[2018-12-28] MEDS ORDERED: Sulfamethoxazole/Trimethoprim 800-160 MG Tab PO ONE (10:07)
== END 2018-12-28 11:46 | disposition home or self-care (01) ==
LOC: DL.ED 08:35
DX: J18.9 Pneumonia, unspecified organism (principal); I10 Essential (primary) hypertension; E78.00 Pure hypercholesterolemia, unspecified; E11.621 Type 2 diabetes mellitus with foot ulcer; L97.519 Non-pressure chronic ulcer of other part of right foot with unspecified severity; E11.40 Type 2 diabetes mellitus with diabetic neuropathy, unspecified; R59.0 Localized enlarged lymph nodes; Z86.14 Personal history of Methicillin resistant Staphylococcus aureus infection; Z88.0 Allergy status to penicillin; Z79.4 Long term (current) use of insulin; Z79.899 Other long term (current) drug therapy
CPT/HCPCS: 36415; 71046; 73630-RT; 80053; 81001; 82009; 82150; 83605; 83690; 85025; 87040; 87804; 96361; 96365; 96375; 99284; A9270-GY; J1956; J2405; J7030

== ENCOUNTER 2020-09-10 13:48 | Emergency (ER) | payer MEDICAID ==
[2020-09-10 14:05] VITALS: BP 160/85; PULSE 102
--- NOTE | 2020-09-10 15:04 | EDM.PDOC ---
ED HPI GENERAL MEDICAL PROBLEM - General Chief Complaint: Skin Complaint Stated Complaint: SWOLLEN LEG INFECTION MERSA Time Seen by Provider: 09/10/20 14:50 Source of Information: Reports: Patient History Limitations: Reports: No Limitations - History of Present Illness INITIAL COMMENTS - FREE TEXT/NARRATIVE: This 45 yo male patient reports to the ED with left lower extremity swelling. The patient reports he was started on Bactrim about 4 days ago due to an infection in his left foot. The patient reports he has had a previous MRSA infection in his left leg in the past. Onset: Today Duration: Constant Location: Reports: Lower Extremity, Left Quality: Reports: Ache, Dull Severity: Moderate Improves with: Reports: None Worsens with: Reports: None Context: Reports: Other Associated Symptoms: Reports: No Other Symptoms - Related Data Allergies Allergy/AdvReac Type Severity Reaction Status Date / Time Penicillins Allergy Rash Verified 06/13/19 09:38 Home Meds: Home Meds Gabapentin [Neurontin] 800 mg PO BID 05/28/14 [History] Insulin Detemir [Levemir Flexpen] 45 unit SQ BEDTIME 05/28/14 [History] Aspirin [Halfprin] 81 mg PO DAILY 11/03/15 [History] B2/Vits A,C,E/Lut/Zeaxanth/Min [Icaps] 1 cap PO DAILY 11/03/15 [History] Empagliflozin [Jardiance] 25 mg PO DAILY 09/03/17 [History] amLODIPine Besylate [Norvasc] 10 mg PO BEDTIME 05/14/18 [History] hydroCHLOROthiazide [Hydrochlorothiazide] 25 mg PO DAILY 05/14/18 [History] Montelukast Sodium 10 mg PO DAILY 06/11/19 [History] Multivitamin [Daily Kenna] 1 tab PO DAILY 06/11/19 [History] Olmesartan Medoxomil [Benicar] 40 mg PO DAILY 06/11/19 [History] Omeprazole 20 mg PO DAILY 06/11/19 [History] Rosuvastatin Calcium 10 mg PO BEDTIME 06/11/19 [History] Acetaminophen/oxyCODONE [Percocet 325-5 MG] 1 tab PO Q6H PRN 5 Days #15 tablet 06/16/19 [Rx] Insulin Lispro [HumaLOG] 10 unit SUBCUT TIDMEALS vial 06/16/19 [Rx] Magnesium Oxide 250 mg PO BIDM 7 Days #14 tablet 06/16/19 [Rx] Vancomycin 1 gm IV Q12H 4 Days #8 sdv 06/16/19 [Rx] Sulfamethoxazole/Trimethoprim [Bactrim 400-80 MG] 1 each PO BID 09/10/20 [History] Past Medical History HEENT History: Reports: Allergic Rhinitis, Cataract, Impaired Vision, Sinusitis, Other (See Below) Other HEENT History: DIABETIC RETINOPATHY Cardiovascular History: Reports: High Cholesterol, Hypertension Respiratory History: Reports: None Gastrointestinal History: Reports: Cholelithiasis Genitourinary History: Reports: Renal Calculus, Renal Disease Musculoskeletal History: Reports: None Neurological History: Reports: Neuropathy, Diabetic Psychiatric History: Reports: None Endocrine/Metabolic History: Reports: Diabetes, Type II Hematologic History: Reports: Anemia Immunologic History: Reports: None Oncologic (Cancer) History: Reports: None Dermatologic History: Reports: Cellulitis, Other (See Below) Other Dermatologic History: hx of ULCER ON RIGHT FOOT - Infectious Disease History Infectious Disease History: Reports: Chicken Pox, MRSA, Mumps Other Infectious Disease History: 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 - Past Surgical History Head Surgeries/Procedures: Reports: None HEENT Surgical History: Reports: Cataract Surgery, Laser Surgery Other HEENT Surgeries/Procedures: left eye. CATARACT PROCEDURE LEFT EYE WITH LENS IMPLANT Cardiovascular Surgical History: Reports: None Respiratory Surgical History: Reports: None GI Surgical History: Reports: Cholecystectomy, Colonoscopy, EGD Male Surgical History: Reports: Kidney Stone Extraction Endocrine Surgical History: Reports: None Neurological Surgical History: Reports: None Musculoskeletal Surgical History: Reports: None, Other (See Below) Other Musculoskeletal Surgeries/Procedures:: had diabetic sore on bottom of right foot which is healing now Oncologic Surgical History: Reports: None Dermatological Surgical History: Reports: None Social & Family History - Family History Family Medical History: Noncontributory - Tobacco Use Tobacco Use Status *Q: Never Tobacco User - Caffeine Use Caffeine Use: Reports: Soda Other Caffeine Use: 1 SODA POP BEVERAGE DAILY - Recreational Drug Use Recreational Drug Use: No - Living Situation & Occupation Living situation: Reports: , with Spouse Occupation: Employed ED ROS GENERAL - Review of Systems Review Of Systems: Comprehensive ROS is negative, except as noted in HPI. ED EXAM, SKIN/RASH Exam: See Below Exam Limited By: No Limitations General Appearance: Alert, WD/WN, Mild Distress Eye Exam: Bilateral Eye: EOMI, Normal Inspection, PERRL Ears: Normal External Exam, Normal Canal, Hearing Grossly Normal, Normal TMs Nose: Normal Inspection, Normal Mucosa, No Blood Throat/Mouth: Normal Inspection, Normal Lips, Normal Teeth, Normal Gums, Normal Oropharynx, Normal Voice, No Airway Compromise Head: Atraumatic, Normocephalic Neck: Normal Inspection, Supple, Non-Tender, Full Range of Motion Respiratory/Chest: No Respiratory Distress, Lungs Clear, Normal Breath Sounds, No Accessory Muscle Use, Chest Non-Tender Cardiovascular: Normal Peripheral Pulses, Regular Rate, Rhythm, No Edema, No Gallop, No JVD, No Murmur, No Rub GI/Abdominal: Normal Bowel Sounds, Soft, Non-Tender, No Organomegaly, No Distention, No Abnormal Bruit, No Mass (Male) Exam: Deferred Rectal (Males) Exam: Deferred Back Exam: Normal Inspection, Full Range of Motion, NT Extremities: Leg Pain (left lower extremity edema) Neurological: Alert, Oriented Psychiatric: Normal Affect, Normal Mood Skin: Warm, Normal Color, No Rash, Erythema (left lower extremity) Location, Skin: Lower Extremity, Left Course - Vital Signs Last Recorded V/S: Last Vital Signs Temp 36.9 C 09/10/20 14:03 Pulse 102 H 09/10/20 14:03 Resp 18 09/10/20 14:03 BP 160/85 H 09/10/20 14:03 Pulse Ox 98 09/10/20 14:03 - Orders/Labs/Meds Orders: Active Orders 24 hr Category Date Time Status CULTURE BLOOD [BC] Stat Lab 09/10/20 15:00 Received CULTURE BLOOD [BC] Stat Lab 09/10/20 15:00 Received Blood Culture x2 Reflex Set [OM.PC] Stat Oth 09/10/20 14:42 Ordered Labs: Laboratory Tests 09/10/20 09/10/20 09/10/20 Range/Units 15:00 15:00 15:00 WBC 12.2 H (5.0-10.0) 10^3/uL RBC 4.66 (4.6-6.2) 10^6/uL Hgb 13.1 L (14.0-18.0) g/dL Hct 38.6 L (40.0-54.0) % MCV 82.8 (80-100) fL MCH 28.1 (27.0-34.0) pg MCHC 33.9 (33.0-35.0) g/dL Plt Count 220 (150-450) 10^3/uL Neut % (Auto) 72.5 (42.2-75.2) % Lymph % (Auto) 15.5 L (20.5-50.1) % [place] % (Auto) 10.2 H (2-8) % Eos % (Auto) 1.6 (1.0-3.0) % Baso % (Auto) 0.2 (0.0-1.0) % D-Dimer, Quantitative 156 (0-400) ng/mL Sodium 139 (136-145) mmol/L Potassium 3.8 (3.5-5.1) mmol/L Chloride 103 (98-107) mmol/L Carbon Dioxide 27 (21-32) mmol/L Anion Gap 12.8 (7-13) mEq/L BUN 34 H (7-18) mg/dL Creatinine 1.48 H (0.70-1.30) mg/dL Est Cr Clr Drug Dosing 67.73 mL/min Estimated GFR (MDRD) 51 BUN/Creatinine Ratio 23.0 (No establ ref range) Glucose 102 H (74-99) mg/dL Lactic Acid (0.4-2.0) mmol/L Calcium 9.0 (8.5-10.1) mg/dL Total Bilirubin 0.3 (0.2-1.0) mg/dL AST 18 (15-37) U/L ALT 25 (16-63) U/L Alkaline Phosphatase 80 (46-116) U/L Total Protein 8.2 (6.4-8.2) g/dL Albumin 3.6 (3.4-5.0) g/dL Globulin 4.6 Albumin/Globulin Ratio 0.8 10/18/20 Range/Units 15:00 WBC (5.0-10.0) 10^3/uL RBC (4.6-6.2) 10^6/uL Hgb (14.0-18.0) g/dL Hct (40.0-54.0) % MCV (80-100) fL MCH (27.0-34.0) pg MCHC (33.0-35.0) g/dL Plt Count (150-450) 10^3/uL Neut % (Auto) (42.2-75.2) % Lymph % (Auto) (20.5-50.1) % [place] % (Auto) (2-8) % Eos % (Auto) (1.0-3.0) % Baso % (Auto) (0.0-1.0) % D-Dimer, Quantitative (0-400) ng/mL Sodium (136-145) mmol/L Potassium (3.5-5.1) mmol/L Chloride (98-107) mmol/L Carbon Dioxide (21-32) mmol/L Anion Gap (7-13) mEq/L BUN (7-18) mg/dL Creatinine (0.70-1.30) mg/dL Est Cr Clr Drug Dosing mL/min Estimated GFR (MDRD) BUN/Creatinine Ratio (No establ ref range) Glucose (74-99) mg/dL Lactic Acid 1.1 (0.4-2.0) mmol/L Calcium (8.5-10.1) mg/dL Total Bilirubin (0.2-1.0) mg/dL AST (15-37) U/L ALT (16-63) U/L Alkaline Phosphatase (46-116) U/L Total Protein (6.4-8.2) g/dL Albumin (3.4-5.0) g/dL Globulin Albumin/Globulin Ratio Meds: Medications Discontinued Medications Generic Name Dose Route Start Last Admin Trade Name Freq PRN Reason Stop Dose Admin Vancomycin HCl 1,500 mg/ 500 mls @ 333.333 mls/hr 09/10/20 15:57 09/10/20 16:17 Sodium Chloride IV 09/10/20 17:26 333.333 mls/hr ONETIME ONE Administration Departure - Departure Time of Disposition: 17:49 Disposition: Home, Self-Care 01 Condition: Fair Clinical Impression: Cellulitis of left lower extremity - Discharge Information *PRESCRIPTION DRUG MONITORING PROGRAM REVIEWED*: Not Applicable *COPY OF PRESCRIPTION DRUG MONITORING REPORT IN PATIENT JACQUIE: Not Applicable Instructions: Cellulitis, Adult, [id number] Forms: ED Department Discharge Care Plan Goals: The patient was advised of the examination and lab results during the visit. The patient was given an IV dose of Vancomycin while in the ED. The patient was encouraged to continue with the antibiotics as prescribed by his primary care facility. The patient should follow-up with his primary care facility for continued evaluation and management. If the patient has any additional symptoms or concerns, the patient should either return to the emergency department or visit his primary care facility. Sepsis Event Note (ED) - Evaluation Sepsis Screening Result: No Definite Risk - Focused Exam Vital Signs: Vital Signs Temp Pulse Resp BP Pulse Ox 09/10/20 14:03 36.9 C 102 H 18 160/85 H 98 - My Orders Last 24 Hours: My Active Orders 09/10/20 14:42 Blood Culture x2 Reflex Set [OM.PC] Stat 09/10/20 15:00 CULTURE BLOOD [BC] Stat CULTURE BLOOD [BC] Stat - Assessment/Plan Last 24 Hours: My Active Orders 09/10/20 14:42 Blood Culture x2 Reflex Set [OM.PC] Stat 09/10/20 15:00 CULTURE BLOOD [BC] Stat CULTURE BLOOD [BC] Stat
[2020-09-10 15:38] LABS: ANION GAP 12.8 mEq/L (7-13)
== END 2020-09-10 17:57 | disposition home or self-care (01) ==
LOC: DL.ED 13:48
DX: L02.416 Cutaneous abscess of left lower limb (principal); E78.00 Pure hypercholesterolemia, unspecified; I10 Essential (primary) hypertension; E11.21 Type 2 diabetes mellitus with diabetic nephropathy; Z79.4 Long term (current) use of insulin; Z79.82 Long term (current) use of aspirin; Z79.899 Other long term (current) drug therapy; Z88.0 Allergy status to penicillin
CPT/HCPCS: 36415; 80053; 83605; 85025; 85379; 87040; 96365; 99283; J3370; J7040

== ENCOUNTER 2022-05-30 20:28 | Emergency (ER) | payer BC, OTHER ==
[2022-05-30] MEDS ORDERED: methylPREDNISolone Sodium Succinate 125 MG/2 ML SDV IM ONE (22:02)
[2022-05-30] MEDS ORDERED: Cyclobenzaprine 10 MG Tab PO ONE (22:06)
[2022-05-30] MEDS ORDERED: Acetaminophen 500 MG Tab PO ONE (22:07)
[2022-05-30 22:43] VITALS: BP 159/92; PULSE 97
== END 2022-05-30 22:35 | disposition home or self-care (01) ==
LOC: DL.ED 20:28
DX: M54.42 Lumbago with sciatica, left side (principal); E78.00 Pure hypercholesterolemia, unspecified; E11.21 Type 2 diabetes mellitus with diabetic nephropathy; I10 Essential (primary) hypertension; Z88.0 Allergy status to penicillin; Z79.899 Other long term (current) drug therapy; Z79.4 Long term (current) use of insulin; Z79.82 Long term (current) use of aspirin
CPT/HCPCS: 96372; 99283; A9270; J2930

== ENCOUNTER 2022-06-04 23:27 | Emergency (ER) | payer BC ==
[2022-06-04] MEDS: Oxymetazoline 0.05% Nasal Spray 30 ML Bottle NAS ONE (23:51)
[2022-06-05] MEDS: Sodium Chloride 0.9% 10 ML Syringe FLUSH PRN (01:08)
[2022-06-05] MEDS: Sodium Chloride 0.9% 1,000 ML IV ONE ×2 (01:09→02:02)
[2022-06-05 01:45] LABS: ANION GAP 17.2 mEq/L (7-13); CHLORIDE,CL 100 mmol/L (98-107); SODIUM,NA 140 mmol/L (136-145)
[2022-06-05 02:01] LABS: ESTIMATED GFR 55 mL/min (>=60)
[2022-06-05 03:08] VITALS: BP 147/78; PULSE 92
== END 2022-06-05 02:39 | disposition home or self-care (01) ==
LOC: DL.ED 23:27
DX: U07.1 COVID-19 (principal); E11.40 Type 2 diabetes mellitus with diabetic neuropathy, unspecified; E78.00 Pure hypercholesterolemia, unspecified; I10 Essential (primary) hypertension; Z88.0 Allergy status to penicillin; Z79.4 Long term (current) use of insulin; Z79.82 Long term (current) use of aspirin; Z79.899 Other long term (current) drug therapy
CPT/HCPCS: 36415; 80053; 83605; 85025; 86140; 87040; 87635; 93005; 93010; 96360; 99284; A9270; J3490; J7030; U0002

== ENCOUNTER 2022-12-16 20:36 | Emergency (ER) | payer BC ==
[2022-12-16 20:49] VITALS: PULSE 108
[2022-12-16] MEDS ORDERED: Sodium Chloride 0.9% 10 ML Syringe FLUSH PRN (20:49)
[2022-12-16] MEDS ORDERED: Levofloxacin/Dextrose 5%-Water 750 MG in Premix Bag 1 BAG IV ONE (21:32)
[2022-12-16 21:33] LABS: ANION GAP 12.8 mEq/L (7-13); CHLORIDE,CL 104 mmol/L (98-107); SODIUM,NA 139 mmol/L (136-145)
[2022-12-16 21:38] LABS: ESTIMATED GFR 63 mL/min (>=60)
[2022-12-16 21:38] LABS: CORONAVIRUS COVID-19 NAA NEGATIVE (NEGATIVE); RESPIRATORY SYNCYTIAL VIR NAA NEGATIVE (NEGATIVE)
[2022-12-16] MEDS ORDERED: Hydrochlorothiazide 25 MG Tab PO ONE (21:41)
[2022-12-16] MEDS ORDERED: amLODIPine 5 MG Tab PO ONE (21:41)
[2022-12-16] MEDS ORDERED: Sodium Chloride 0.9% 1,000 ML IV ONE (21:42)
[2022-12-16 21:50] VITALS: BP 205/93
== END 2022-12-16 23:05 | disposition home or self-care (01) ==
LOC: DL.ED 20:36
DX: J18.9 Pneumonia, unspecified organism (principal); E78.00 Pure hypercholesterolemia, unspecified; I10 Essential (primary) hypertension; E11.40 Type 2 diabetes mellitus with diabetic neuropathy, unspecified; E11.319 Type 2 diabetes mellitus with unspecified diabetic retinopathy without macular edema; D64.9 Anemia, unspecified; Z88.0 Allergy status to penicillin; Z79.82 Long term (current) use of aspirin; Z79.4 Long term (current) use of insulin; Z79.899 Other long term (current) drug therapy; Z20.822 Contact with and (suspected) exposure to COVID-19
CPT/HCPCS: 0241U; 36415; 71045; 80053; 83605; 84484; 85025; 93005; 93010; 96365; 99284; 99285; A9270; J1956; J3490; J7030

== ENCOUNTER 2023-01-01 11:46 | Emergency (ER) | payer OTHER, BC ==
[2023-01-01] MEDS ORDERED: Lidocaine 1% 10 ML MDV INJECT ONE (12:06)
[2023-01-01 12:10] VITALS: BP 142/85; PULSE 95
[2023-01-01] MEDS ORDERED: Lidocaine 1% 30 ML SDV INJECT ONE (12:15)
[2023-01-01] MEDS ORDERED: Bacitracin Oint 1 GM U/D Packet TOP ONE (12:44)
== END 2023-01-01 13:12 | disposition home or self-care (01) ==
LOC: DL.ED 11:46
DX: S81.812A Laceration without foreign body, left lower leg, initial encounter (principal); E78.00 Pure hypercholesterolemia, unspecified; I10 Essential (primary) hypertension; E11.9 Type 2 diabetes mellitus without complications; Z88.0 Allergy status to penicillin; Z79.899 Other long term (current) drug therapy; Z79.4 Long term (current) use of insulin; Z86.16 Personal history of COVID-19; Z90.49 Acquired absence of other specified parts of digestive tract; W26.0XXA Contact with knife, initial encounter; Y99.0 Civilian activity done for income or pay
CPT/HCPCS: 12002; 99282; 99283; A9270-GY; J3490

== ENCOUNTER 2023-07-27 09:41 | Emergency (ER) | payer BC ==
[2023-07-27 10:03] VITALS: BP 152/77; PULSE 97
[2023-07-27] MEDS ORDERED: Ondansetron 4 MG/2 ML SDV IV ONE (10:11)
[2023-07-27] MEDS ORDERED: diphenhydrAMINE 50 MG/ML SDV IVPUSH ONE (10:11)
[2023-07-27] MEDS ORDERED: Sodium Chloride 0.9% 1,000 ML IV ONE (10:11)
[2023-07-27] MEDS ORDERED: Sodium Chloride 0.9% 10 ML Syringe FLUSH PRN (10:11)
[2023-07-27] MEDS ORDERED: Ketorolac 30 MG/ML SDV IVPUSH ONE (10:13)
[2023-07-27 10:31] LABS: BASOPHILS PERCENT AUTO 0.2 % (0.0-1.0); EOSINOPHILS PERCENT AUTO 0.7 % (1.0-3.0); HEMATOCRIT 39.6 % (40.0-54.0); HEMOGLOBIN 13.4 g/dL (14.0-18.0); LYMPHOCYTES PERCENT AUTO 9.7 % (20.5-50.1); MEAN CORPUSCULAR HEMOGLOBIN 28.3 pg (27.0-34.0); MEAN CORPUSCULAR HGB CONC 33.8 g/dL (33.0-35.0); MEAN CORPUSCULAR VOLUME 83.7 fL (80-100); MONOCYTES PERCENT AUTO 9.5 % (2-8); NEUTROPHILS PERCENT AUTO 79.9 % (42.2-75.2); PLATELET COUNT,PLT 232 10^3/uL (150-450); RED BLOOD CELL COUNT 4.73 10^6/uL (4.6-6.2); WHITE BLOOD CELL COUNT,WBC 15.4 10^3/uL (5.0-10.0)
[2023-07-27 10:43] LABS: KETONES,BLOOD NEGATIVE
[2023-07-27 11:08] LABS: A/G RATIO 0.8; ALANINE AMINOTRANSFERASE,ALT 24 U/L (16-63); ALBUMIN 3.4 g/dL (3.4-5.0); ALKALINE PHOSPHATASE 87 U/L (46-116); ANION GAP 12.6 mEq/L (7-13); ASPARTATE AMNIOTRANSFERASE,AST 16 U/L (15-37); BILIRUBIN TOTAL 0.4 mg/dL (0.2-1.0); BLOOD UREA NITROGEN,BUN 34 mg/dL (7-18); BUN/CREATININE RATIO 23.3 (No establ ref range); C-REACTIVE PROTEIN 6.7 mg/dL (0.0-0.9); CALCIUM 8.9 mg/dL (8.5-10.1); CARBON DIOXIDE,CO2 26 mmol/L (21-32); CHLORIDE,CL 103 mmol/L (98-107); CREATININE 1.46 mg/dL (0.70-1.30); EST CRCL DRUG DOSING (CG) 68.41 mL/min; ESTIMATED GFR 58 mL/min (>=60); GLUCOSE RANDOM 95 mg/dL (70-99); POTASSIUM,K 3.6 mmol/L (3.5-5.1); PROTEIN TOTAL,TP 7.9 g/dL (6.4-8.2); SODIUM,NA 138 mmol/L (136-145)
[2023-07-27 11:11] LABS: LACTIC ACID 1.4 mmol/L (0.4-2.0)
[2023-07-27] MEDS ORDERED: Take Home: Clindamycin HCl 150 MG, 12 Cap Pack PO ONE (12:12)
[2023-07-27] MEDS ORDERED: Take Home: Acetaminophen/HYDROcodone 325-5 MG, 5 Tab Pack PO ONE (12:12)
[2023-07-27] MEDS ORDERED: Take Home: Doxycycline 100 MG Cap, 4 Cap Pack PO ONE (12:12)
== END 2023-07-27 12:35 | disposition home or self-care (01) ==
LOC: DL.ED 09:41
DX: E11.621 Type 2 diabetes mellitus with foot ulcer (principal); L97.519 Non-pressure chronic ulcer of other part of right foot with unspecified severity; L03.115 Cellulitis of right lower limb; E78.00 Pure hypercholesterolemia, unspecified; I10 Essential (primary) hypertension; Z86.16 Personal history of COVID-19; Z88.0 Allergy status to penicillin; Z79.4 Long term (current) use of insulin; Z79.899 Other long term (current) drug therapy
CPT/HCPCS: 36415; 73630; 80053; 82009; 83605; 84145; 85025; 85379; 86140; 87040; 96365; 96366; 96375; 99283; A9270; J1200; J1885; J2405; J3370; J7030; J7040; 99284; J3490

== ENCOUNTER 2023-10-05 13:58 | Emergency (ER) | payer BC ==
[2023-10-05 14:28] VITALS: BP 117/90; PULSE 104
[2023-10-05] MEDS ORDERED: Take Home: Ondansetron 4 MG Tab.DIS, 5 Tab Pack PO ONE (15:55)
[2023-10-05] MEDS ORDERED: Take Home: Acetaminophen/oxyCODONE 325-5 MG, 5 Tab Pack PO ONE (15:55)
[2023-10-05 16:06] LABS: BASOPHILS PERCENT AUTO 0.4 % (0.0-1.0); EOSINOPHILS PERCENT AUTO 0.7 % (1.0-3.0); HEMATOCRIT 40.4 % (40.0-54.0); HEMOGLOBIN 13.3 g/dL (14.0-18.0); LYMPHOCYTES PERCENT AUTO 18.3 % (20.5-50.1); MEAN CORPUSCULAR HEMOGLOBIN 27.8 pg (27.0-34.0); MEAN CORPUSCULAR HGB CONC 32.9 g/dL (33.0-35.0); MEAN CORPUSCULAR VOLUME 84.3 fL (80-100); MONOCYTES PERCENT AUTO 11.6 % (2-8); PLATELET COUNT,PLT 224 10^3/uL (150-450); RED BLOOD CELL COUNT 4.79 10^6/uL (4.6-6.2); WHITE BLOOD CELL COUNT,WBC 10.7 10^3/uL (5.0-10.0)
[2023-10-05 16:19] LABS: C-REACTIVE PROTEIN 5.04 ng/dL (<=0.30); URIC ACID 10.6 mg/dL (3.5-7.2)
[2023-10-05] MEDS ORDERED: Colchicine 0.6 MG Tab PO ONE (16:29)
[2023-10-05] MEDS ORDERED: Dexamethasone 4 MG Tab PO ONE (16:29)
[2023-10-05] MEDS ORDERED: Acetaminophen/oxyCODONE 325-5 MG Tab PO ONE (16:29)
== END 2023-10-05 16:42 | disposition home or self-care (01) ==
LOC: DL.ED 13:58
DX: M10.9 Gout, unspecified (principal); M25.461 Effusion, right knee; I10 Essential (primary) hypertension; E78.00 Pure hypercholesterolemia, unspecified; E11.40 Type 2 diabetes mellitus with diabetic neuropathy, unspecified; Z86.16 Personal history of COVID-19; Z90.49 Acquired absence of other specified parts of digestive tract; Z79.4 Long term (current) use of insulin; Z79.899 Other long term (current) drug therapy; Z88.0 Allergy status to penicillin
CPT/HCPCS: 36415; 73560-RT; 84550; 85025; 86140; 99283; 99284; A9270-GY; J8540; Q0162

== ENCOUNTER 2023-10-17 14:54 | Emergency (ER) | payer BC ==
[2023-10-17 15:56] LABS: HEMATOCRIT 38.3 % (40.0-54.0); HEMOGLOBIN 12.7 g/dL (14.0-18.0); MEAN CORPUSCULAR HEMOGLOBIN 27.5 pg (27.0-34.0); MEAN CORPUSCULAR HGB CONC 33.2 g/dL (33.0-35.0); MEAN CORPUSCULAR VOLUME 83.1 fL (80-100); PLATELET COUNT,PLT 226 10^3/uL (150-450); RED BLOOD CELL COUNT 4.61 10^6/uL (4.6-6.2); WHITE BLOOD CELL COUNT,WBC 14.3 10^3/uL (5.0-10.0)
[2023-10-17 16:00] LABS: NEUTROPHILS PERCENT AUTO 73.4 % (42.2-75.2)
[2023-10-17 16:01] LABS: BASOPHILS PERCENT AUTO 0.3 % (0.0-1.0); EOSINOPHILS PERCENT AUTO 0.1 % (1.0-3.0); LYMPHOCYTES PERCENT AUTO 14.9 % (20.5-50.1); MONOCYTES PERCENT AUTO 11.3 % (2-8)
[2023-10-17 16:16] LABS: ALBUMIN 3.2 g/dL (3.4-5.0); ANION GAP 13.9 mEq/L (7-13); BILIRUBIN TOTAL 0.4 mg/dL (0.2-1.0); BUN/CREATININE RATIO 18.5 (No establ ref range); C-REACTIVE PROTEIN 7.36 ng/dL (<=0.50); CALCIUM 8.7 mg/dL (8.5-10.1); CREATININE 1.84 mg/dL (0.70-1.30); EST CRCL DRUG DOSING (CG) 49.59 mL/min; POTASSIUM,K 3.9 mmol/L (3.5-5.1); PROTEIN TOTAL,TP 7.9 g/dL (6.4-8.2)
[2023-10-17 16:18] LABS: A/G RATIO 0.68; LACTIC ACID 1.2 mmol/L (0.4-2.0)
[2023-10-17 16:30] LABS: BASOPHILS PERCENT MAN 1; LYMPHOCYTES PERCENT MAN 18 % (20-50); MONOCYTES PERCENT MAN 9 % (2-8); SEG NEUTROPHILS PERCENT MAN 72 % (42-75)
[2023-10-17] MEDS ORDERED: Iopamidol 612 MG/ML 100 ML Bottle IVPUSH ONE (16:35)
[2023-10-17 16:39] LABS: CORONAVIRUS COVID-19 NAA NEGATIVE (NEGATIVE); INFLUENZA A NAA NEGATIVE (NEGATIVE); INFLUENZA B NAA NEGATIVE (NEGATIVE); RESPIRATORY SYNCYTIAL VIR NAA NEGATIVE (NEGATIVE)
[2023-10-17 18:03] VITALS: BP 116/70; PULSE 96
[2023-10-17] MEDS ORDERED: Sodium Chloride 0.9% 1,000 ML IV ONE (19:02)
== END 2023-10-17 19:55 ==
LOC: DL.ED 14:54
DX: L03.116 Cellulitis of left lower limb (principal); R59.0 Localized enlarged lymph nodes; E78.00 Pure hypercholesterolemia, unspecified; I10 Essential (primary) hypertension; E11.9 Type 2 diabetes mellitus without complications; Z48.817 Encounter for surgical aftercare following surgery on the skin and subcutaneous tissue; Z20.822 Contact with and (suspected) exposure to COVID-19; Z79.4 Long term (current) use of insulin; Z79.899 Other long term (current) drug therapy; Z88.0 Allergy status to penicillin; Z86.16 Personal history of COVID-19; Z90.49 Acquired absence of other specified parts of digestive tract
CPT/HCPCS: 0241U; 36415; 73701; 80053; 83605; 84145; 85025; 86140; 87040; 93971; 96365; 99284; 99285; J3370; J7030; J7040; Q9967

== ENCOUNTER 2025-04-20 19:30 | Emergency (ER) | payer BC, OTHER ==
[2025-04-20] MEDS: Acetaminophen/HYDROcodone 325-5 MG Tab PO ONE (19:57)
[2025-04-20] MEDS: Ondansetron 4 MG Tab.DIS PO ONE (19:58)
[2025-04-20] MEDS: Ketorolac 30 MG/ML SDV IM ONE (19:58)
[2025-04-20 20:30] VITALS: PULSE 100
[2025-04-20] MEDS: Take Home: Acetaminophen/HYDROcodone 325-5 MG, 5 Tab Pack PO ONE (20:51)
[2025-04-20] MEDS: Take Home: Cyclobenzaprine 10 MG Tab, 4 Tab Pack PO ONE (20:51)
[2025-04-20 21:07] VITALS: BP 191/116
== END 2025-04-20 20:59 | disposition home or self-care (01) ==
LOC: DL.ED 19:30
DX: M54.12 Radiculopathy, cervical region (principal); M62.838 Other muscle spasm; I10 Essential (primary) hypertension; E78.00 Pure hypercholesterolemia, unspecified; E11.9 Type 2 diabetes mellitus without complications; Z88.0 Allergy status to penicillin; Z79.4 Long term (current) use of insulin; Z79.899 Other long term (current) drug therapy; Z90.49 Acquired absence of other specified parts of digestive tract; Z86.16 Personal history of COVID-19
CPT/HCPCS: 72040; 73030; 96372; 99283; A9270; J1885; 99284